=== PATIENT | male | born 1980 | race Caucasian/White ===

== ENCOUNTER 2017-10-21 05:16 | Day surgery (SDC) | payer OTHER ==
[2017-10-16 14:03] LABS: BASOPHILS % (AUTO) 0.3 % (0-1); EOSINOPHILS # (AUTO) 0.2 X10'3 (0-0.9); EOSINOPHILS % (AUTO) 1.6 % (0-6); LYMPHOCYTES # (AUTO) 2.5 X10'3 (1.1-4.8); LYMPHOCYTES % (AUTO) 25.4 % (21-51); MEAN CORPUSCULAR HEMOGLOBIN 32.5 PG (27.0-31.0); MEAN CORPUSCULAR HGB CONC 34.8 % (33.0-36.5); MEAN CORPUSCULAR VOLUME 93.3 FL (78-98); MEAN PLATELET VOLUME 8.6 FL (7.4-10.4); MONOCYTES % (AUTO) 10.3 % (2-12); NEUTROPHILS # (AUTO) 6.2 X10'3 (1.8-7.7); NEUTROPHILS % (AUTO) 62.4 % (42-75); PRE OP HEMATOCRIT 47.6 % (42.0-52.0); PRE OP HEMOGLOBIN 16.6 g/dL (14.0-17.9); PRE OP PLATELET COUNT 234 X10'3 (140-440); RED BLOOD COUNT 5.11 X10'6 (4.70-6.10); RED CELL DISTRIBUTION WIDTH 13.1 % (11.5-14.5)
[2017-10-16 14:17] LABS: ALKALINE PHOSPHATASE 61 IU/L (46-116); BLOOD UREA NITROGEN 11 MG/DL (7-18); BUN/CREATININE RATIO 9.2 (5.4-32.0); CALCIUM 9.2 MG/DL (8.5-10.1); CHLORIDE 103 MMOL/L (99-107); CREATININE 1.19 MG/DL (0.60-1.10); PRE OP ANION GAP 8 (8-16); PRE OP AST 41 U/L (10-37); PRE OP BILIRUB, TOTAL 0.7 MG/DL (0.0-1.0); PRE OP GLUCOSE 108 MG/DL (70-104); PRE OP POTASSIUM 4.3 MMOL/L (3.4-5.1); PRE OP SODIUM 140 MMOL/L (135-145); TOTAL CARBON DIOXIDE 28.8 MMOL/L (24-32); TOTAL PROTEIN 8.1 G/DL (6.4-8.2); eGFR 69 ML/MIN
[2017-10-16 14:18] LABS: PRE OP ALT 104 U/L (30-65)
[~2017-10-21] VITALS: Ht 182.9 cm; Wt 130.2 kg
[~2017-10-21 05:16] MED LIST: IBUP-1594 PO; ringers solution, lacted 1,000 ML IV SCH
[2017-10-21] MEDS ORDERED: ceFAZolin inj. 3,000 MG in normal saline 100ml IV soln 100 ML IV ONE (05:30)
[2017-10-21] MEDS ORDERED: famotidine 20mg tablet PO ONE (05:30)
[2017-10-21] MEDS ORDERED: LIDOcaine 1% (10mg/ml) 2ml vial ONE (06:03)
[2017-10-21] MEDS ORDERED: sevoflurane 250ml liquid IH ONE (07:31)
[2017-10-21] MEDS ORDERED: midazolam 2 mg/2 ml injection ONE (07:36)
[2017-10-21] MEDS ORDERED: fentaNYL/PF 50MCG/1 ML 2ML syringe ONE (07:36)
[2017-10-21] MEDS ORDERED: BUPIVAcaine/PF 2.5 mg/ml (0.25%) 30ml vial ONE (07:55)
[2017-10-21] MEDS ORDERED: triamcinolone acetonide 40mg/ml inj ONE (08:29)
[2017-10-21] MEDS ORDERED: propofol inj 20 ML IV ONE ×2 (08:39)
[2017-10-21 08:50] VITALS: BP 134/87
[2017-10-21] MEDS ORDERED: ringers solution, lacted 1,000 ML IV SCH (08:53)
[2017-10-21] MEDS ORDERED: meperidine/PF 50mg/ml syringe IV PRN ×3 (08:55)
[2017-10-21] MEDS ORDERED: morphine 4 MG/ML inj SYRINge IV PRN ×2 (08:55)
[2017-10-21] MEDS ORDERED: ondansetron/PF 4mg/2ml inj IV PRN (08:55)
[2017-10-21] MEDS ORDERED: proCHLORperazine 10 MG/2 ml inj IV PRN (08:55)
[2017-10-21 09:00] VITALS: BP 118/80
[2017-10-21 09:10] VITALS: BP 116/79
[2017-10-21 09:20] VITALS: BP 151/94
[2017-10-21 09:30] VITALS: BP 135/88
[2017-10-21 09:40] VITALS: BP 132/80
== END 2017-10-21 09:40 | disposition home or self-care (01) ==
LOC: PAS 05:16
PROVIDERS: ATTEND Orthopaedic Surgery
DX: M65.862 Other synovitis and tenosynovitis, left lower leg (principal); M22.42 Chondromalacia patellae, left knee; M67.262 Synovial hypertrophy, not elsewhere classified, left lower leg; F17.210 Nicotine dependence, cigarettes, uncomplicated; E66.9 Obesity, unspecified; Z72.89 Other problems related to lifestyle; Z68.38 Body mass index [BMI] 38.0-38.9, adult; Z79.1 Long term (current) use of non-steroidal anti-inflammatories (NSAID)
CPT/HCPCS: 29875; 36415; 80053; 85025; A6449; J0690; J2250; J2704; J3010; J3301; J3490; J7030; J7120; A7000

== ENCOUNTER 2018-06-27 14:59 | Emergency (ER) | payer MEDICAID, OTHER ==
[~2018-06-27] VITALS: Ht 182.9 cm; Wt 111.3 kg
[~2018-06-27 14:59] MED LIST changes: -ringers solution, lacted 1,000 ML IV SCH
[2018-06-27] MEDS ORDERED: HYDROcodone/acetaminophen 10/325mg tab PO ONE (15:55)
[2018-06-27] MEDS ORDERED: iohexol 300mg/ml 100ml inj. ONE (16:03)
[2018-06-27] MEDS ORDERED: AMOX-422 PO (16:46)
[2018-06-27 16:58] VITALS: BP 123/73
== END 2018-06-27 16:59 | disposition home or self-care (01) ==
LOC: ER 14:59
DX: K61.1 Rectal abscess (principal); G89.29 Other chronic pain; Z79.899 Other long term (current) drug therapy; Z98.890 Other specified postprocedural states
CPT/HCPCS: 72193; 99284; Q9967